=== PATIENT | female | born 1985 | race Caucasian/White ===

== ENCOUNTER → 2016-10-01 | Outpatient (CLI) | payer OTHER ==
--- NOTE | 2016-10-01 15:15 | DX ---
1. THORACIC SPINE, 3 views HISTORY: Evaluate for arthritis, bilateral arm radiculopathy, mid back pain,M54.9 COMPARISON: None FINDINGS: There is a mild thoracic levoscoliosis. There is no paraspinal stripe widening. Thoracic ve rtebral bodies maintain normal height. Disc spaces are normal. Overall mineralization is normal. IMPRESSION: Mild scoliosis. Otherwise normal. 2. CERVICAL SPINE, 2 views HISTORY: Bilateral arm radiculopathy, and 54.9, evaluate for arthritis COMPARISON: None FINDINGS: There is a mild compensatory dextroscoliosis at the cervicothoracic junction. The cervical spine is mildly tilted toward the patient's left and the patient's head is tilted toward her right. O n the lateral view there is straightening of the normal cervical curvature. Disc spaces maintain norm al height. There are small anterior and posterior osteophytes at C6-C7. There are no compression abno rmalities or prevertebral soft tissue swelling. Impression: Degenerative change at C6-C7. If radicular symptoms persist, despite a period of conserva tive therapy, then cervical MRI may be considered, as clinically directed.
== END ==
LOC: BMCIMAGING 14:35
PROVIDERS: ATTEND Internal Medicine Rheumatology
DX: M41.84 Other forms of scoliosis, thoracic region (principal); M50.323 Other cervical disc degeneration at C6-C7 level